=== PATIENT | male | born 1965 | race Caucasian/White ===

== ENCOUNTER 2019-06-22 09:48 | Day surgery (SDC) | payer BC ==
[2019-06-22] MEDS ORDERED: PROPOFOL 10 MG/ML VIAL IV ONE (09:49)
[2019-06-22] MEDS ORDERED: LIDOCAINE 2% MDV (20MG/ML) 20ML VIAL IV ONE (09:49)
--- NOTE | 2019-06-23 09:50 | Operative Note ---
OPERATION: COLONOSCOPY with cold forceps polypectomy. PREOPERATIVE DIAGNOSIS: Colon cancer screening, history of fair prep. POSTOPERATIVE DIAGNOSIS: Sigmoid colon polyp. ESTIMATED BLOOD LOSS: Minimum. SPECIMENS: Sigmoid colon. PREPARATION QUALITY: Excellent. COMPLICATIONS: None apparent. PROCEDURE: After informed consent was obtained from the patient, he was placed in the left lateral decubitus position in the endoscopy suite, sedated and monitored by the department of anesthesia. Digital rectal examination was unremarkable. A well-lubricated [id number] colonoscope was inserted into the rectum and advanced to the cecum. The cecum, cecal bulb, ileocecal valve, appendiceal orifice, ascending colon, transverse colon, and descending colon were unremarkable. There was a diminutive sigmoid colon polyp removed with a cold forceps. Minimal bleeding was noted. The remainder of the sigmoid colon and rectum were unrevealing. J-turn views of the anorectum were unremarkable. The endoscope was straightened, the rectal ampulla deflated, and the endoscope was removed. RECOMMENDATIONS: The patient should resume his medication and diet. He will require repeat exam in 5-10 years pending tissue histology. As always, thank you for allowing me to participate in the healthcare of your patients. [facility]
== END 2019-06-22 11:30 | disposition home or self-care (01) ==
LOC: HOP 09:48
PROVIDERS: ATTEND Internal Medicine Gastroenterology
DX: Z12.11 Encounter for screening for malignant neoplasm of colon (principal); K63.5 Polyp of colon; E78.00 Pure hypercholesterolemia, unspecified